=== PATIENT | female | born 1960 | race Caucasian/White ===

== ENCOUNTER → 2016-08-07 | Outpatient (CLI) | payer BC | LOC: MOB LAB 12:19 | PROVIDERS: ATTEND Physician Assistant | DX: T81.4XXA Infection following a procedure, initial encounter (principal); Z90.710 Acquired absence of both cervix and uterus; Z98.890 Other specified postprocedural states | CPT/HCPCS: 87070; 87077; 87186; 87205 ==

== ENCOUNTER 2016-09-11 08:25 | Day surgery (SDC) | payer BC ==
[~2016-09-11 08:25] MED LIST: LIDOCAINE W/ SODIUM BICARB 0.5 ML SYR ONE; Lactated Ringers 1,000 ML PRIMARY IV ONE; ceFAZolin Inj 2gm (Premix) 50 ML IV ONE
[2016-09-11] MEDS ORDERED: SODIUM BICARBONATE 8.4% - 50 ML VIAL ONE (09:40)
[2016-09-11] MEDS ORDERED: LIDOCAINE HCL 1%/EPI 1:100,000 - 20 ML VIAL ONE (09:40)
[2016-09-11] MEDS ORDERED: HEPARIN 500 UNIT/5 ML SYRINGE FOR CENTRAL LINE IVP ONE ×2 (09:41)
[2016-09-11] MEDS ORDERED: fentaNYL Inj 100 MCG/2 ML VIAL ONE (09:44)
[2016-09-11] MEDS ORDERED: MIDAZOLAM 5 MG/1 ML ONE (09:44)
[2016-09-11] MEDS ORDERED: Sodium Chloride 0.9% 100 ML IV ONE (09:54)
--- NOTE | 2016-09-11 10:57 | DI ---
C-ARM FLUOROSCOPY OF THE CHEST, 09/11/2016 9:30 AM : Clinical History: Endometrial cancer. Verification of placement of a Mediport catheter. Previous Exam: None at this facility. 2 AP spot films are submitted. Both show the catheter tip to be in the distal superior vena cava. The approach is from the left subclavian route. There is no evidence of a pneumothorax. Reading: Status post Mediport catheter placement.
--- NOTE | 2016-09-11 11:04 | GEN.OPNOTE ---
Operative Note Surgery Date: 09/11/16 Preoperative Diagnosis: Endometrial cancer. Need for long-term venous access. Postoperative Diagnosis: Endometrial cancer. Need for long-term venous access. Procedure: Left subclavian PowerPort placement. Surgeon: Oziel Marie MD Anesthesia Provider: Yong Arguello CRNA Anesthesia Type: Local (1% Xylocaine with epinephrine and sodium bicarbonate per Oziel Marie M.D.), MAC Estimated Blood Loss (mL): 5 Fluids: 700 mL of crystalloid. 2 g of IV Ancef at the start of the procedure. Pathology: No specimens. Indications: See preoperative diagnosis. Findings: Smooth course of the catheter in the subclavian vein into the superior vena cava. No evidence of pneumothorax fluoroscopically. Complications: None. Operative Summary: The patient was taken to the operating suite and placed on the operating table in the supine position. A surgical timeout was done. Following the induction of adequate IV sedation the operative site was chosen and infiltrated with 1% Xylocaine with epinephrine and bicarbonate. The patient is right-handed so I chose a left subclavian approach. A Cook needle was used to tunnel from the port site up to the subclavian vein. The needle was inserted into the subclavian vein on the first pass. A guidewire was passed through the vein into the superior vena cava. Its position was confirmed with fluoroscopy. An incision was made on the chest wall. A subcutaneous pocket was developed. A power port was chosen. The catheter was cut to 20 cm. The device was put together in the normal fashion and flushed with heparinized saline. A peel- away sheath and dilator were passed over the guidewire. The guidewire and dilator were removed. The catheter was passed through the peel-away sheath into the superior vena cava. The peel-away sheath was removed. The port was placed into the chest wall pocket. Fluoroscopy confirmed a smooth course of the catheter throughout. The tip was in the superior vena cava. There was no evidence of a pneumothorax. The device was flushed initially with 10 units of heparin per cc flush. Final flush was with 7 mL of 100 units of heparin per cc flush. The deep dermis was closed with inverted interrupted 3-0 Vicryls. The skin was closed with running subcuticular 4-0 Monocryl. This was followed by Mastisol, Steri-Strips, and an OpSite dressing. A sandbag was placed on the operative site. The patient tolerated the procedure well without complication. She was taken to outpatient surgery in stable condition. All counts were correct. Final chest x-ray shows the catheter tip in the superior vena cava. There is no evidence of a pneumothorax. The catheter may be used for its intended purpose.
[2016-09-11] MEDS ORDERED: HYDROcodone-APAP 5 MG -325 MG TABLET PO PRN (11:11)
--- NOTE | 2016-09-11 12:00 | DI ---
AP CHEST X-RAY, 09/11/2016 10:45 AM : Clinical History: Endometrial cancer. Verification of Mediport catheter position. Previous Exam: None at this facility. There is no acute soft tissue or bony abnormality. Heart size is normal. There is no pneumothorax. Me diastinal structures are normal. There are no pulmonary nodules. The Mediport has been inserted from the left subclavian route and the catheter tip is in the distal superior vena cava. Readin. Normal chest x-ray. 2. The catheter tip is in the distal superior vena cava.
[2016-09-11 12:07] VITALS: TEMP 97
[2016-09-11 12:10] VITALS: RESP 17
== END 2016-09-11 11:55 | disposition home or self-care (01) ==
LOC: SDSC 08:25
PROVIDERS: ATTEND Surgery
DX: C54.1 Malignant neoplasm of endometrium (principal)
CPT/HCPCS: 36561; 71010; 76000; J0690; J2704; J3010; J2250; J7050; J7120

== ENCOUNTER 2016-11-09 19:27 | Inpatient (IN) | payer BC ==
[2016-11-09] MEDS ORDERED: ACETAMINOPHEN 325 MG TABLET PO ONE (19:51)
[2016-11-09] MEDS ORDERED: NORMAL SALINE 10 ML SYRINGE FLUSH IVP PRN ×2 (19:51→22:34)
[2016-11-09 19:59] LABS: BILIRUBIN,URINE NEGATIVE (NEG); CLARITY,URINE CLEAR (CLEAR); COLOR,URINE YELLOW; GLUCOSE, URINE (UA) 100 mg/dL (NEG); NITRATE,URINE NEGATIVE (NEG); OCCULT BLOOD,URINE NEGATIVE (NEG); PROTEIN,URINE 30 mg/dl (NEG)
[2016-11-09 20:00] LABS: BACTERIA,URINE RARE; RBC,URINE 0-1 /hpf; SQUAMOUS EPITHELIAL CELL,UR MODERATE; URINE SAMPLE TYPE CLEAN CATCH URINE; WBC,URINE 0-1
[2016-11-09 20:32] LABS: BASOPHILS # (AUTO) 0.04 10*3/UL; BASOPHILS % (AUTO) 2.2 % (0-1); EOSINOPHILS # (AUTO) 0.05 10*3/UL; EOSINOPHILS % (AUTO) 2.8 % (0-8); HEMATOCRIT 27.4 % (37.0-47.0); HEMOGLOBIN 9.2 g/dL (12.0-16.0); LYMPHOCYTES # (AUTO) 0.98 10*3/uL; MEAN CORPUSCULAR HEMOGLOBIN 26.4 PG (27-31); MEAN CORPUSCULAR HGB CONC 33.6 g/dL (33-37); MEAN CORPUSCULAR VOLUME 78.7 FL (81-99); MONOCYTES # (AUTO) 0.71 10*3/UL (0.3-0.8); MONOCYTES % (AUTO) 39.9 % (5-15); NEUTROPHILS # (AUTO) 0 10*3/UL; NEUTROPHILS % (AUTO) 0 % (50-80); RED BLOOD COUNT 3.48 10^6/uL (4.20-5.40)
[2016-11-09 20:41] LABS: BLOOD UREA NITROGEN 14 mg/dL (7-22); BUN/CREATININE RATIO 15.55 (6-20); CALCIUM 8.6 mg/dL (8.7-10.7); EST GLOMERULAR FILTRATION > 60 (>60 ml/min/1.73m(2)); SERUM ALBUMIN 3.8 g/dL (3.5-4.8)
[2016-11-09 20:47] LABS: PLATELET MORPHOLOGY COMMENT NORMAL MORPHOLOGY (NORM); RBC MORPHOLOGY COMMENT NORMAL MORPHOLOGY (NORM); WBC MORPHOLOGY COMMENT NORMAL MORPHOLOGY (NORM)
[2016-11-09] MEDS ORDERED: Ertapenem Inj 1 GM in Sodium Chloride 0.9% 100 ML IV ONE (21:05)
--- NOTE | 2016-11-09 21:53 | PDOC ---
General Adult HPI - General Chief Complaint: General Medical Stated Complaint: Fever Date Seen by Provider: 11/09/16 Time Seen by Provider: 19:35 Source: POSITIVE: Patient, Spouse Exam Limitations: POSITIVE: No limitations Nurse's Notes Reviewed & Considered: Yes - History of Present Illness Initial Comment: The patient is a 56-year-old female. She is brought to the emergency room by her . Patient has a history of endometrial carcinoma which has reportedly spread to her ovaries. Patient underwent a hysterectomy and bilateral salpingo-oophorectomy. She is presently undergoing chemotherapy with pactilaxal and carboplatin. She is receiving this therapy from an oncologist in [place]. Patient undergoes a course of chemotherapy every 21 days and has just completed her third round. She last received this medication 14 days ago. She states that since last night she has had fevers and chills. No cough. No dysuria. No vomiting or diarrhea. No rashes. She called her oncologist in [place], who advised the patient to come to the emergency room. Patient has had a LAP-BAND in the past. On one made her white blood cell count was 7000. Have you received a tetanus shot in the past 10 years?: Yes Body Location Affected: REPORTS: Other (Fevers and chills) Timing: REPORTS: Abrupt Duration: <24 hours (Onset last night) Severity: Moderate Quality: REPORTS: Other (Patient denies any pain) Context: REPORTS: None Modifying Factors: improves with: Nothing Similar Symptoms Previously: No Recent Care Received: REPORTS: Recently Seen, Treated by MD (As above) Any Prior Injuries Related to Current Complaint?: No - Patient Home Medications Home Medications: Home Medications Diltiazem HCl 30 mg PO BID tab 01/25/15 Acyclovir [Zovirax] 1 tab PO BID PRN tab 09/10/16 Echinacea 1 cap PO DAILY cap 09/10/16 Losartan/Hydrochlorothiazide [Hyzaar 50-12.5 Tablet] 1 tab PO DAILY tab Lysine 1 tab PO DAILY tab 09/10/16 Vitamin B Complex 1 cap PO DAILY cap 09/10/16 - Patient Allergies Allergies/Adverse Reactions: Allergies Allergy/AdvReac Type Severity Reaction Status Date / Time No Known Drug Allergies Allergy NOT Verified 11/09/16 19:36 APPLICABLE Past Medical History - heen HEENT History: Denies History Cardiovascular History: Hypertension Additional Cardiovasular History: MURMUR Respiratory History: Denies History Gastrointestinal History: Other (please comment) Additional Gastrointestinal History: HX OF LAP BAND Genitourinary History: Denies History Endocrine History: Denies History Musculoskeletal History: Denies History Prosthesis or Implant: No Neurological History: Motion Sickness Blood Disorders: Denies History Psychiatric History: Denies History History of Sexually Transmitted Diseases: No Female Reproductive History: Other (please comment) Additional Female Reproductive History: Endometrial cancer, radiacal hysterectomy with removal of bilateral ovaries. Pt currently on IV chemotherapy. Pt reports recently finished infusion of third treament. Obstetrical History: Denies History Cancer History: Other (please comment) Cancer Treatment / Date(s) of Treatment: EXTENSIVE SX. HYST, LYMPH NODE, CHEMO In Past Year Been Physically Harmed or Verbally Threatened: No History of MDRO: No Tobacco Use: Never Smoker Alcohol Use: Rarely Substance Use Type: None Previous Surgical History: Yes Type / Date of Surgery: RADICAL HYST/ BILAT OOPHORECTOMY/ LAP BAND/ D&C/ LYMPH NODE DISSECTION Anesthesia Reactions: No Malignant Hyperthermia: No Significant Family History: No pertinent family hx Past Medical History Reviewed: Reviewed - No Changes ROS - Limitations ROS Limitations: No Limitations Constitution: REPORTS: Chills, Fever Cardiovascular: REPORTS: Denies Cardiac Symptoms Respiratory: REPORTS: Denies Resp Symptoms Neurological: REPORTS: Denies Neuro Symptoms Gastrointestinal: REPORTS: Denies GI Symptoms Endocrine: REPORTS: Denies Symptoms Musculoskeletal: REPORTS: Denies MS Symptoms Genitourinary: REPORTS: Denies Symptoms Eyes: REPORTS: Denies Symptoms ENT: REPORTS: Denies Symptoms Skin: REPORTS: Denies Skin Symptoms Lympathic: REPORTS: Denies Lympathic Symptoms Immunologic: POSITIVE: Denies Symptoms Psychiatric: POSITIVE: Denies Psych Symptoms General Adult Exam - General Appearance General Appearance: POSITIVE: Alert, Cooperative, No Acute Distress, No Evidence of Trauma - HEENT HEENT: POSITIVE: Head Inspection Nml, Eyes Inspection Nml, Ears Inspection Nml, Nose Inspection Nml, Oral/Dental Inspect. Nml, Pharynx Inspect. Nml, PERRL, EOMI - Pupils Pupil Size: 3 mm: Bilateral (PERRLA) - Neck Neck: POSITIVE: Normal Inspection, Thyroid Normal - Respiratory Respiratory: POSITIVE: No Respiratory Distress, Breath Sounds Normal, Chest Non- Tender - Cardiovascular Cardiovascular: POSITIVE: Regular Rate & Rhythm, No Murmur, No Gallop, PMI Normal Peripheral Pulses: Radial (R): 2+, Radial (L): 2+ - Abdomen Abdomen: Soft: (All Quadrants), Normal Bowel Sounds: (All Quadrants), Denies Tenderness: (All Quadrants), No Splenomegaly: (All Quadrants), No Hepatomegaly: (All Quadrants), No Guarding: (All Quadrants), No Rebound: (All Quadrants), No Palpable Pulse: (All Quadrants), No Palpabale Mass: (All Quadrants), No Distention: (All Quadrants), No Rigidity: (All Quadrants) - Back Back: POSITIVE: Normal Inspection - Skin Skin: POSITIVE: Normal Color, Warm, Dry, No Rash - Extremities Extremity: Non-Tender: (All Extremities), Normal ROM: (All Extremities), Normal Inspection: (All Extremities) - Neurological / Psychological Neurological: POSITIVE: Affect Apporpriate, Oriented X3, front office agent Normal As Tested, Motor Normal, Sensation Normal, Other (No meningeal signs) General Adult Progress - Results Reviewed by me Xrays/CTs/US Reviewed by me: Yes Discussed with Radiologist: No Radiology Findings: Port on the left. No infiltrates. Lab Results Reviewed: Yes (White blood cell count 1780; 0 neutrophils) Lab Results:: Laboratory Results 11/09/16 11/09/16 Range/Units 19:59 20:17 WBC 1.78 L (4.8-10.8) 10^3/uL RBC 3.48 L (4.20-5.40) 10^6/uL Hgb 9.2 L (12.0-16.0) g/dL Hct 27.4 L (37.0-47.0) % MCV 78.7 L (81-99) FL MCH 26.4 L (27-31) PG MCHC 33.6 (33-37) g/dL RDW Std Deviation 51.0 H (39-50) fL RDW Coeff of Liz 18.7 H (11.5-14.5) % Plt Count 258 (140-350) 10*3/uL MPV 9.0 (7.4-12.2) FL Immature Gran % (Auto) 0 (0-5) % Neut % (Auto) 0 L (50-80) % Lymph % (Auto) 55.1 H (10-50) % [place] % (Auto) 39.9 H (5-15) % Eos % (Auto) 2.8 (0-8) % Baso % (Auto) 2.2 H (0-1) % Immature Gran # (Auto) 0 10*3/UL Neut # (Auto) 0 10*3/UL Lymph # (Auto) 0.98 10*3/uL [place] # (Auto) 0.71 (0.3-0.8) 10*3/UL Eos # (Auto) 0.05 10*3/UL Baso # (Auto) 0.04 10*3/UL WBC Morphology Comment Normal morphology (NORM) Plt Morphology Comment Normal morphology (NORM) RBC Morph Comment Normal morphology (NORM) Sodium 138 (135-145) meq/L Potassium 3.1 L (3.8-5.2) meq/L Chloride 99 (98-112) meq/L Carbon Dioxide 25 (23-33) meq/L Anion Gap 14 (5-20) BUN 14 (7-22) mg/dL Creatinine 0.9 (0.50-1.20) mg/dL Estimated GFR > 60 (>60 ml/min/1.73m(2)) BUN/Creatinine Ratio 15.55 (6-20) Glucose 142 H (78-110) mg/dL Calculated Osmolality 288.0 (267-292) mOsm/kg Lactic Acid 1.2 (0.70-2.10) MMOL/L Calcium 8.6 L (8.7-10.7) mg/dL Total Bilirubin 0.6 (0.3-1.2) mg/dL AST 25 (8-39) IU/L ALT 39 (9-52) IU/L Alkaline Phosphatase 65 (38-126) IU/L Total Protein 6.7 (6.1-8.0) g/dL Albumin 3.8 (3.5-4.8) g/dL Globulin 2.9 (2.50-4.10) g/dL Albumin/Globulin Ratio 1.30 (1.3-2.0) mg/g Ur Collection Type Clean catch urine Urine Color Yellow Urine Clarity Clear (CLEAR) Urine pH 7.0 (5.0-8.5) Ur Specific [place] 1.015 (1.005-1.030) Urine Protein 30 (NEG) mg/dl Urine Glucose (UA) 100 (NEG) mg/dL Urine Ketones Negative (NEG) Urine Occult Blood Negative (NEG) Urine Nitrate Negative (NEG) Urine Bilirubin Negative (NEG) Urine Urobilinogen 1.0 (0.2) EU/dL Ur Leukocyte Esterase Negative (NEG) Urine RBC 0-1 (NONE) /hpf Urine WBC 0-1 (NONE) Ur Squamous Epith Cells Moderate (NONE) Ur Renal Epithelial Cell None (NONE) Urine Crystals None Urine Bacteria Rare (NONE) Urine Casts None (NONE) Urine Mucus None (NONE) Urine Trichomonas None (NONE) Urine Yeast None (NONE) Ur Culture Indicated? Culture not set - Patient's Progress Pain Medication Addressed: POSITIVE: Not Applicable School/Work Release Addressed: POSITIVE: Not Applicable Re-Examine Time: 21:10 Re-Examine Comment: Patient given Tylenol for her fever. Temperatures 100.7 on discharge. Invanz 1 g started after blood cultures were taken. Attempts to contact patient's oncologist in [place] were unsuccessful. Case discussed with Dr. Victor, hospitalist, who has admitted the patient for further evaluation and treatment. Status: POSITIVE: Unchanged, Re-Examined Antibiotics Given: Yes (Invanz, 1 g IV) - Consult Consult (If Yes, Name of Consulting MD & Time Called): Yes (Dr. Victor, hospitalist [id number],) Consulting MD will see pt:: POSITIVE: [facility] [place]mit Counseled: POSITIVE: Patient, Family, RE: Lab Results, RE: Radiology Results, RE : DX, RE: Need for F/U Patient Care Time - Estimated PCT Patient Care Time (In Minutes): 55 Vital Signs - Recent Vital Signs Vital Signs: Vital Signs (Last 8 hours) Temp Pulse Resp BP Pulse Ox 11/09/16 21:08 100.7 F H 11/09/16 20:02 102.4 F H 11/09/16 19:30 102.4 F H 108 H 20 140/86 93 - VS Reviewed Vital Signs Reviewed: Yes Discharge Clinical Impression: Fever, Leucopenia, Uterine cancer, Chemotherapy adverse reaction Discharge Disposition: Admit to Inpatient Condition: Good Date Decision to Admit to Inpatient: 11/09/16 Time Decision to Admit to Inpatient: 21:00
[2016-11-09] MEDS ORDERED: Filgrastim Inj 480 MCG/0.8 ML SYRINGE IVP ONE (22:34)
[2016-11-09] MEDS ORDERED: ONDANSETRON 4 MG/2 ML VIAL IVP PRN (22:34)
[2016-11-09] MEDS ORDERED: Vancomycin-PHA to Dose IV PRN (22:34)
[2016-11-09] MEDS ORDERED: ACYCLOVIR 400 MG TABLET PO PRN (22:34)
[2016-11-09] MEDS ORDERED: LIDOCAINE W/ SODIUM BICARB 0.5 ML SYR SUBD PRN (22:34)
[2016-11-09] MEDS ORDERED: ACETAMINOPHEN 325 MG TABLET PO PRN (22:34)
[2016-11-09] MEDS ORDERED: DILTIAZEM 30 MG TABLET PO SCH (22:40)
[2016-11-09] MEDS: Sodium Chloride 0.9% 1,000 ML PRIMARY IV SCH (23:22)
[2016-11-09] MEDS: Cefepime Inj 2 GM in Sodium Chloride 0.9% 100 ML IV SCH (23:23)
[2016-11-09] MEDS ORDERED: D5W 0 ML IV ONE (23:44)
--- NOTE | 2016-11-09 23:45 | PDOC ---
History and Physical - History of Present Illness Date and Time of Service: 11/09/2016, 7554 Chief Complaint: Fever and chills History of Present Illness: This very pleasant 56-year-old female with stage NICOLAS endometrial cancer status post radical hysterectomy and on her third cycle of 6 for chemotherapy. She is actually due for repeat dose of chemotherapy next week. She's been treated by Dr. Rivera in [place] at [facility]. She came in because she developed a fever and chills. She developed chills yesterday but her states she's actually been quite cold and has been using the blanket frequently at home. Chills and fever developed yesterday and according to that she she was supposed to seek evaluation. They called the resident dynamics ax consultant who recommended that she present to the emergency room for evaluation. Here she was found to have an absolute neutrophil count of 0. She's never had this happen before. She denies any symptoms of cough, nausea or vomiting, diarrhea, or shortness of breath. She denies any urinary complaints. She was admitted and I gave her a dose of cefepime and vancomycin. Blood cultures were drawn and are pending. I also ordered a dose of Neupogen. Patient denied any rashes and she denies any joint pain. She states that she does feel a little constipated and has some myalgias postchemotherapy for about 3-4 days but they tend to resolve. Past Medical History Medical History: 1. Stage NICOLAS endometrial cancer status post radical hysterectomy and on chemotherapy currently. 2. Hypertension Surgical History: 1. Radical hysterectomy. 2. Status post lap banding Pertinent Family History: States that her mother has COPD. Her father had skin cancers, but not melanoma. Past Social History: Does not smoke or drink. 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 She is for over 38 years and has 3 healthy children. Tobacco Use: Never Smoker Substance Use Type: None Alcohol Use: None Medication / Allergies Home Medications: Home Medications Medication Instructions Recorded Confirmed Type Diltiazem HCl 30 mg PO BID tab 01/25/15 11/09/16 History Acyclovir [Zovirax] 1 tab PO BID PRN tab 09/10/16 11/09/16 History Echinacea 1 cap PO DAILY cap 09/10/16 11/09/16 History Losartan/Hydrochlorothiazide 1 tab PO DAILY tab 09/10/16 11/09/16 History [Hyzaar 50-12.5 Tablet] Lysine 1 tab PO DAILY tab 09/10/16 11/09/16 History Vitamin B Complex 1 cap PO DAILY cap 09/10/16 11/09/16 History Allergies/Adverse Reactions: Allergies Allergy/AdvReac Type Severity Reaction Status Date / Time No Known Drug Allergies Allergy NOT Verified 11/09/16 19:36 APPLICABLE Review of Systems - Review of Systems All Systems: Reviewed & No Additional Complaints Except as Stated (I did a 12 point review systems and it was negative except as per history of present illness and that noted below.) - Constitutional Constitutional: REPORTS: Weight Gain, Fever/Chills - Integumentary Integumentary: REPORTS: Negative System Review - Ear/Nose Exam Ear/Nose Exam: REPORTS: Negative System Review - Mouth/Throat Mouth/Throat Exam: REPORTS: Negative System Review - Respiratory Respiratory: REPORTS: Negative System Review - Cardiovascular Cardiovascular: REPORTS: Negative System Review - Gastrointestinal Gastrointestinal / Abdominal: REPORTS: Constipation (For about 3-4 days following chemotherapy.) - Genitourinary Genitourinary: REPORTS: Negative System Review - Gynecological Gynecological: REPORTS: See HPI - Musculoskeletal Musculoskeletal: REPORTS: Other (Generalized joint pains 3-4 days following chemotherapy.) - Hematlogic / Lymphatic Hematologic / Lymphatic: REPORTS: Other (Has never had any problems with neutropenia thus far.) - Neurological Neurologic: REPORTS: Negative System Review - Psychiatric Psychiatric: DENIES: Anhedonia, Anxiety, Depressed, Hopelessness, Hospitalization, Negative System Review, Other, Panic, Sadness, See HPI, Suicidality, Tearfullness Exam - Vitals Vital Signs: Vital Signs Height 5 ft 4 in Weight 204 lb 6.4 oz Vital Signs - Last Taken Temperature 100.7 F H 11/09/16 21:08 Pulse Rate 108 H 11/09/16 19:30 Respiratory Rate 20 11/09/16 19:30 Blood Pressure 140/86 11/09/16 19:30 Pulse Ox 93 11/09/16 19:30 Currently on room air. - General General Appearance: POSITIVE: No Acute Distress, Cooperative, Obese - Head Head Exam: POSITIVE: Normal Inspection, Normocephalic, Atraumatic - Eye Eye Exam: POSITIVE: EOMI, No Scleral Icterus - ENT ENT Exam: POSITIVE: Mucous Membranes Moist - Neck Neck Exam: POSITIVE: Normal Inspection, No Tenderness, No Thyromegaly - Respiratory Respiratory Exam: POSITIVE: Clear to Auscultation - Bilaterally, Breathing Non Labored, Normal to Percussion and Palpation - Cardiovascular Cardiovascular Exam: POSITIVE: RRR, No Murmur, No Clicks, No Gallops, No Rubs, No JVD - GI/Abdominal GI/Abdominal Exam: POSITIVE: Normal Bowel Sounds, Non Tender, Non Distended, Soft - Rectal Rectal Exam: POSITIVE: Deferred - External Exam: POSITIVE: Deferred Exam: POSITIVE: Deferred - Extremities Extremities Exam: POSITIVE: No Clubbing Present, No Edema Present, No Cyanosis Present - Back Back Exam: POSITIVE: Normal Inspection, No CVA Tenderness - Neurological Neurological Exam: POSITIVE: Alert, Oriented x 3, No Facial Droop, Speech Intact / Clear, Moves All Extremities Equally - Psychiatric Psychiatric Exam: POSITIVE: Normal Affect, Normal Mood - Integumentary Integumentary Exam: POSITIVE: Normal Color, Warm, Dry - Central Line Examination Central Line Present on Admission: Yes Central Line Type: Med-Port Central Line Location: Subclavian (L) Central Line Site Observations: POSITIVE: Asymptomatic, Intact, Patent Results - Labs CBC and BMP: 11/09/16 20:17 11/09/16 20:17 Labs - Last 24 Hours: Laboratory Results 11/09/16 11/09/16 Range/Units 19:59 20:17 WBC 1.78 L (4.8-10.8) 10^3/uL RBC 3.48 L (4.20-5.40) 10^6/uL Hgb 9.2 L (12.0-16.0) g/dL Hct 27.4 L (37.0-47.0) % MCV 78.7 L (81-99) FL MCH 26.4 L (27-31) PG MCHC 33.6 (33-37) g/dL RDW Std Deviation 51.0 H (39-50) fL RDW Coeff of Liz 18.7 H (11.5-14.5) % Plt Count 258 (140-350) 10*3/uL MPV 9.0 (7.4-12.2) FL Immature Gran % (Auto) 0 (0-5) % Neut % (Auto) 0 L (50-80) % Lymph % (Auto) 55.1 H (10-50) % [place] % (Auto) 39.9 H (5-15) % Eos % (Auto) 2.8 (0-8) % Baso % (Auto) 2.2 H (0-1) % Immature Gran # (Auto) 0 10*3/UL Neut # (Auto) 0 10*3/UL Lymph # (Auto) 0.98 10*3/uL [place] # (Auto) 0.71 (0.3-0.8) 10*3/UL Eos # (Auto) 0.05 10*3/UL Baso # (Auto) 0.04 10*3/UL WBC Morphology Comment Normal morphology (NORM) Plt Morphology Comment Normal morphology (NORM) RBC Morph Comment Normal morphology (NORM) Sodium 138 (135-145) meq/L Potassium 3.1 L (3.8-5.2) meq/L Chloride 99 (98-112) meq/L Carbon Dioxide 25 (23-33) meq/L Anion Gap 14 (5-20) BUN 14 (7-22) mg/dL Creatinine 0.9 (0.50-1.20) mg/dL Estimated GFR > 60 (>60 ml/min/1.73m(2)) BUN/Creatinine Ratio 15.55 (6-20) Glucose 142 H (78-110) mg/dL Calculated Osmolality 288.0 (267-292) mOsm/kg Lactic Acid 1.2 (0.70-2.10) MMOL/L Calcium 8.6 L (8.7-10.7) mg/dL Total Bilirubin 0.6 (0.3-1.2) mg/dL AST 25 (8-39) IU/L ALT 39 (9-52) IU/L Alkaline Phosphatase 65 (38-126) IU/L Total Protein 6.7 (6.1-8.0) g/dL Albumin 3.8 (3.5-4.8) g/dL Globulin 2.9 (2.50-4.10) g/dL Albumin/Globulin Ratio 1.30 (1.3-2.0) mg/g Ur Collection Type Clean catch urine Urine Color Yellow Urine Clarity Clear (CLEAR) Urine pH 7.0 (5.0-8.5) Ur Specific [place] 1.015 (1.005-1.030) Urine Protein 30 (NEG) mg/dl Urine Glucose (UA) 100 (NEG) mg/dL Urine Ketones Negative (NEG) Urine Occult Blood Negative (NEG) Urine Nitrate Negative (NEG) Urine Bilirubin Negative (NEG) Urine Urobilinogen 1.0 (0.2) EU/dL Ur Leukocyte Esterase Negative (NEG) Urine RBC 0-1 (NONE) /hpf Urine WBC 0-1 (NONE) Ur Squamous Epith Cells Moderate (NONE) Ur Renal Epithelial Cell None (NONE) Urine Crystals None Urine Bacteria Rare (NONE) Urine Casts None (NONE) Urine Mucus None (NONE) Urine Trichomonas None (NONE) Urine Yeast None (NONE) Ur Culture Indicated? Culture not set - Imaging Status: Image Reviewed by Me (Chest x-ray is negative for pneumonia on my view. The port looks to be in proper location.) Assessment and Plan - Patient Problems (1) Neutropenic fever Current Visit: Yes Status: Acute (2) Endometrial cancer, FIGO stage NICOLAS Current Visit: Yes Status: Acute (3) Hypertension Current Visit: Yes Status: Acute Qualifiers: Hypertension type: essential hypertension Qualified Description: Essential hypertension Qualifier Code(s): (I10) Essential (primary) hypertension - Assessment / Plan Additional Assessment/Plan Details: The patient on her MASCC risk index is a score of 26, which probably puts her at low risk, but I'm very concerned that her absolute neutrophil count is 0. This may place her in a higher risk category. I think she needs monitoring in the hospital stay. History of physical examination does not indicate any infection at this time, patient is alert and oriented, has no evidence of DIESEL ENGINE PIPE FITTER infection, has no evidence of port infection, no evidence of pneumonia, no evidence of urinary tract infection, and no indication that she could have endocarditis. Blood cultures have been drawn and are pending. Broad-spectrum antibiotics including cefepime, and given that she has had treatments for chemotherapy and hospitalizations and at a university setting, I think vancomycin may be worthwhile here for at least the next 48 hours until we see blood culture results. Give Neupogen. On Friday, when there is more data and information from blood cultures, I think it may be worthwhile to call down to the clinic and find out whether they would like us to do anything different. If blood cultures are negative at 48 hours, could consider discharge home on empiric regimen to cover 7-10 days. IV fluids will be administered. I will keep the patient on telemetry monitoring for heart rate monitoring in particular. No evidence of sepsis at this time, but monitor closely. Patient is hypokalemic, replace potassium. For the constipation, add MiraLAX to her regimen. Neutropenic precautions And I have asked for no visitation from grandchildren until her ANC is above 500 at a minimum. I discussed the above plan with the patient and her and they agreed. She is full code. Photo / Body Diagrams - Uploaded Photos Uploaded Photos:
[2016-11-09] MEDS ORDERED: POTASSIUM CHLORIDE 20 MEQ TAB PO ONE (23:56)
[2016-11-09] MEDS ORDERED: Potassium Chloride 20 mEq 20 MEQ in Premix 1 BAG IV ONE (23:57)
[2016-11-10] MEDS: DILTIAZEM 30 MG TABLET PO SCH ×2 (00:24→09:14)
[2016-11-10] MEDS ORDERED: HEPARIN 500 UNIT/5 ML SYRINGE FOR CENTRAL LINE IVP ONE (01:09)
[2016-11-10 05:45] LABS: HEMOGLOBIN 8.2 g/dL (12.0-16.0); LYMPHOCYTES # (AUTO) 0.65 10*3/uL
[2016-11-10 05:52] LABS: BLOOD UREA NITROGEN 9 mg/dL (7-22); CALCIUM 8.4 mg/dL (8.7-10.7); EST GLOMERULAR FILTRATION > 60 (>60 ml/min/1.73m(2)); MAGNESIUM 1.6 mg/dL (1.6-2.4)
[2016-11-10 05:54] LABS: BASOPHILS # (AUTO) 0.02 10*3/UL; BASOPHILS % (AUTO) 1.3 % (0-1); EOSINOPHILS # (AUTO) 0.04 10*3/UL; EOSINOPHILS % (AUTO) 2.6 % (0-8); HEMATOCRIT 25.1 % (37.0-47.0); MEAN CORPUSCULAR HEMOGLOBIN 25.9 PG (27-31); MEAN CORPUSCULAR HGB CONC 32.7 g/dL (33-37); MEAN CORPUSCULAR VOLUME 79.4 FL (81-99); MEAN PLATELET VOLUME 9.4 FL (7.4-12.2); MONOCYTES % (AUTO) 44.9 % (5-15); NEUTROPHILS # (AUTO) 0.15 10*3/UL; NEUTROPHILS % (AUTO) 9.5 % (50-80); RED BLOOD COUNT 3.16 10^6/uL (4.20-5.40)
[2016-11-10 06:24] LABS: PLATELET MORPHOLOGY COMMENT NORMAL MORPHOLOGY (NORM); RBC MORPHOLOGY COMMENT SEE COMMENTS (NORM); WBC MORPHOLOGY COMMENT SEE COMMENTS (NORM)
[2016-11-10] MEDS: Cefepime Inj 2 GM in Sodium Chloride 0.9% 100 ML IV SCH ×3 (08:04→23:05)
[2016-11-10] MEDS: Sodium Chloride 0.9% 1,000 ML PRIMARY IV SCH ×3 (08:05→20:49)
[2016-11-10] MEDS ORDERED: DILTIAZEM 30 MG TABLET PO SCH (09:00)
[2016-11-10] MEDS: LOSARTAN/HYDROCHLOROTHIAZIDE 50 MG/12.5 MG TABLET PO SCH (09:12)
[2016-11-10] MEDS ORDERED: DILTIAZEM 60 MG TABLET PO ONE ×2 (09:12→20:39)
[2016-11-10] MEDS: ACYCLOVIR 400 MG TABLET PO SCH ×2 (09:13→20:49)
[2016-11-10] MEDS: ECHINACEA PO SCH (09:15)
[2016-11-10] MEDS: ENOXAPARIN SODIUM 40 MG/0.4 ML SYRINGE SUBCUT SCH (09:15)
[2016-11-10] MEDS: LYSINE PO SCH (09:16)
[2016-11-10] MEDS: VITAMIN B COMPLEX PO SCH (09:16)
[2016-11-10] MEDS ORDERED: Filgrastim Inj 480 MCG/0.8 ML SYRINGE IVP ONE (09:42)
[2016-11-10] MEDS ORDERED: POTASSIUM CHLORIDE 20 MEQ TAB PO ONE (09:43)
[2016-11-10] MEDS: ACETAMINOPHEN 325 MG TABLET PO PRN ×2 (12:40→23:12)
[2016-11-10] MEDS ORDERED: POLYETHYLENE GLYCOL 3350 17 GM POWDER PO ONE (13:07)
--- NOTE | 2016-11-10 14:35 | PDOC(PROG) ---
Date and Time of Service: 11/10/2016, 1435 Interval History: No complaints of chest pain, shortness breath, nausea or vomiting, diarrhea, cough, or other symptoms. No dysuria. Objective : Data - Labs CBC and BMP: 11/10/16 05:09 11/10/16 05:09 Labs - Last 24 Hours: Laboratory Results 11/10/16 Range/Units 05:09 WBC 1.56 L (4.8-10.8) 10^3/uL RBC 3.16 L (4.20-5.40) 10^6/uL Hgb 8.2 L (12.0-16.0) g/dL Hct 25.1 L (37.0-47.0) % MCV 79.4 L (81-99) FL MCH 25.9 L (27-31) PG MCHC 32.7 L (33-37) g/dL RDW Std Deviation 51.5 H (39-50) fL RDW Coeff of Liz 18.8 H (11.5-14.5) % Plt Count 248 (140-350) 10*3/uL MPV 9.4 (7.4-12.2) FL Immature Gran % (Auto) 0 (0-5) % Neut % (Auto) 9.5 L (50-80) % Lymph % (Auto) 41.7 (10-50) % [place] % (Auto) 44.9 H (5-15) % Eos % (Auto) 2.6 (0-8) % Baso % (Auto) 1.3 H (0-1) % Immature Gran # (Auto) 0 10*3/UL Neut # (Auto) 0.15 10*3/UL Lymph # (Auto) 0.65 10*3/uL [place] # (Auto) 0.70 (0.3-0.8) 10*3/UL Eos # (Auto) 0.04 10*3/UL Baso # (Auto) 0.02 10*3/UL WBC Morphology Comment See comments (NORM) Plt Morphology Comment Normal morphology (NORM) RBC Morph Comment See comments (NORM) Sodium 140 (135-145) meq/L Potassium 3.6 L (3.8-5.2) meq/L Chloride 103 (98-112) meq/L Carbon Dioxide 27 (23-33) meq/L Anion Gap 10 (5-20) BUN 9 (7-22) mg/dL Creatinine 0.6 (0.50-1.20) mg/dL Estimated GFR > 60 (>60 ml/min/1.73m(2)) BUN/Creatinine Ratio 15.00 (6-20) Glucose 145 H (78-110) mg/dL Calculated Osmolality 291.0 (267-292) mOsm/kg Lactic Acid 1.6 (0.70-2.10) MMOL/L Calcium 8.4 L (8.7-10.7) mg/dL Magnesium 1.6 (1.6-2.4) mg/dL Assessment and Plan - Patient Problems (1) Neutropenic fever Current Visit: Yes Status: Acute (2) Endometrial cancer, FIGO stage NICOLAS Current Visit: Yes Status: Acute (3) Hypertension Current Visit: Yes Status: Acute Qualifiers: Hypertension type: essential hypertension Qualified Description: Essential hypertension Qualifier Code(s): (I10) Essential (primary) hypertension - Assessment / Plan Additional Assessment/Plan Details: Continue cefepime and vancomycin, awaiting blood cultures which are not back at this point. I spoke to oncology at the [facility], I did hear a murmur on today's heart exam and ran it by them. The patient had a documented history of a murmur and given that it was in the setting of anemia and fever, they think the only indication for a ARON at this point would be if the patient has positive blood cultures. Those are pending at this time. Continue antibiotics prophylactically until fevers erika. Patient's absolute neutrophil count is about 16, still less than 500, and we will give another dose of Neupogen today. Check CBC with differential and basic metabolic panel tomorrow. If the patient at any time becomes septic or ill, were somewhat her appearance is now, we would consider transfer to [facility]. Plan above discussed with patient and her and they agree. Photo / Body Diagrams - Uploaded Photos Uploaded Photos:
[2016-11-10] MEDS ORDERED: ENOXAPARIN SODIUM 40 MG/0.4 ML SYRINGE SUBCUT ONE (20:02)
[2016-11-10] MEDS: DILTIAZEM 60 MG TABLET PO SCH (20:48)
[2016-11-10] MEDS ORDERED: ACETAMINOPHEN 325 MG TABLET PO ONE (23:11)
[2016-11-11 01:41] LABS: VITAMIN D 25-HYDROXY 26.8 NG/ML (30-100)
[2016-11-11] MEDS: Sodium Chloride 0.9% 1,000 ML PRIMARY IV SCH ×2 (03:19→07:04)
[2016-11-11 04:24] LABS: MEAN PLATELET VOLUME 8.9 FL (7.4-12.2)
[2016-11-11 04:28] LABS: HEMATOCRIT 24.4 % (37.0-47.0); HEMOGLOBIN 7.9 g/dL (12.0-16.0); MEAN CORPUSCULAR HEMOGLOBIN 25.7 PG (27-31); MEAN CORPUSCULAR HGB CONC 32.4 g/dL (33-37); MEAN CORPUSCULAR VOLUME 79.5 FL (81-99); RED BLOOD COUNT 3.07 10^6/uL (4.20-5.40)
[2016-11-11 04:34] LABS: BLOOD UREA NITROGEN 6 mg/dL (7-22); CALCIUM 7.9 mg/dL (8.7-10.7); EST GLOMERULAR FILTRATION > 60 (>60 ml/min/1.73m(2))
[2016-11-11 05:00] LABS: PLATELET MORPHOLOGY COMMENT NORMAL MORPHOLOGY (NORM); RBC MORPHOLOGY COMMENT SEE COMMENTS (NORM); WBC MORPHOLOGY COMMENT SEE COMMENTS (NORM)
[2016-11-11 05:01] LABS: BAND NEUTROPHILS % 46 % (0-10); BASOPHILS % (MANUAL) 0 % (0-1); EOSINOPHILS % (MANUAL) 0 % (0-8); LYMPHOCYTES % (MANUAL) 17 % (10-50); METAMYELOCYTES % 11 %; MONOCYTES % (MANUAL) 9 % (0-12); MYELOCYTES % 1 %; NEUTROPHILS % (MANUAL) 16 % (50-80)
[2016-11-11] MEDS: Cefepime Inj 2 GM in Sodium Chloride 0.9% 100 ML IV SCH ×3 (07:04→23:15)
[2016-11-11] MEDS ORDERED: POLYETHYLENE GLYCOL 3350 17 GM POWDER PO SCH (09:00)
[2016-11-11] MEDS ORDERED: POTASSIUM CHLORIDE 20 MEQ TAB PO SCH (09:00)
[2016-11-11] MEDS: LOSARTAN/HYDROCHLOROTHIAZIDE 50 MG/12.5 MG TABLET PO SCH (09:01)
[2016-11-11] MEDS: DILTIAZEM 60 MG TABLET PO SCH ×2 (09:01→20:56)
[2016-11-11] MEDS: ACYCLOVIR 400 MG TABLET PO SCH ×2 (09:01→20:56)
[2016-11-11] MEDS: ENOXAPARIN SODIUM 40 MG/0.4 ML SYRINGE SUBCUT SCH (09:02)
[2016-11-11] MEDS: ECHINACEA PO SCH (09:11)
[2016-11-11] MEDS: LYSINE PO SCH (09:12)
[2016-11-11] MEDS: VITAMIN B COMPLEX PO SCH (09:12)
--- NOTE | 2016-11-11 09:38 | PDOC(PROG) ---
Date and Time of Service: 11/11/2016 9:35 AM Interval History: Subjective Patient feels much better she said compared to when she came in. She came into the hospital because of history of fever and chills, she denied other symptoms. Her white count was low she was started on IV antibiotics and she was given Neupogen. Today she feels better. She said she started to have diarrhea yesterday. Went multiple times with small amounts. No abdominal pain. She has a history of endometrial cancer she had hysterectomy and she's getting chemotherapy now. She is getting it every 3 weeks the last time she got it was 2 weeks ago. Objective : Data - Labs CBC and BMP: 11/11/16 04:08 11/11/16 04:08 Labs - Last 24 Hours: Laboratory Results 11/10/16 11/11/16 Range/Units 05:09 04:08 WBC 6.64 (4.8-10.8) 10^3/uL RBC 3.07 L (4.20-5.40) 10^6/uL Hgb 7.9 L (12.0-16.0) g/dL Hct 24.4 L (37.0-47.0) % MCV 79.5 L (81-99) FL MCH 25.7 L (27-31) PG MCHC 32.4 L (33-37) g/dL RDW Std Deviation 52.6 H (39-50) fL RDW Coeff of Liz 18.9 H (11.5-14.5) % Plt Count 206 (140-350) 10*3/uL MPV 8.9 (7.4-12.2) FL Neutrophils % (Manual) 16 L (50-80) % Band Neutrophils % 46 H (0-10) % Lymphocytes % (Manual) 17 (10-50) % Monocytes % (Manual) 9 (0-12) % Eosinophils % (Manual) 0 (0-8) % Basophils % (Manual) 0 (0-1) % Metamyelocytes % 11 % Myelocytes % 1 % Promyelocytes % Not Reportable Blast Cells Not Reportable WBC Morphology Comment See comments (NORM) Plt Morphology Comment Normal morphology (NORM) RBC Morph Comment See comments (NORM) Sodium 140 (135-145) meq/L Potassium 3.3 L (3.8-5.2) meq/L Chloride 108 (98-112) meq/L Carbon Dioxide 24 (23-33) meq/L Anion Gap 8 (5-20) BUN 6 L (7-22) mg/dL Creatinine 0.6 (0.50-1.20) mg/dL Estimated GFR > 60 (>60 ml/min/1.73m(2)) BUN/Creatinine Ratio 10.00 (6-20) Glucose 124 H (78-110) mg/dL Calculated Osmolality 288.0 (267-292) mOsm/kg Calcium 7.9 L (8.7-10.7) mg/dL Iron 12 L (37-170) UG/DL TIBC 325 (265-497) ug/dL % Saturation 3.7 L (14-50) % Vitamin B12 438 (239-931) pg/mL Vitamin D 25-Hydroxy 26.8 L (30-100) NG/ML Serum Folate > 20.0 H (2.76-20.0) NG/ML Objective : Exam - General General Appearance: No Acute Distress - Head Head Exam: Normal Inspection, Atraumatic - Eye Eye Exam: Normal Appearance - ENT ENT Exam: Normal Exam - Neck Neck Exam: Normal Inspection - Respiratory Respiratory Exam: Clear to Auscultation - Bilaterally - Cardiovascular Cardiovascular Exam: RRR - GI/Abdominal GI/Abdominal Exam: Normal Bowel Sounds, Non Tender, Non Distended, Soft - Rectal Rectal Exam: Deferred - External Exam: Deferred - Extremities Extremities Exam: Normal Inspection - Back Back Exam: Normal Inspection - Neurological Neurological Exam: Alert, Oriented x 3, CN II-XII Intact, Moves All Extremities Equally - Psychiatric Psychiatric Exam: Normal Affect Assessment and Plan - Patient Problems (1) Neutropenic fever Current Visit: Yes Status: Acute Comment: Her white count improved. I Think we'll start cutting back on her fluid. If the blood culture remain negative may be will DC the vancomycin. Repeat her white count tomorrow. I will try to speak with Dr. delarosa today. (2) Hypertension Current Visit: Yes Status: Acute Comment: Same medications Qualifiers: Hypertension type: essential hypertension Qualified Description: Essential hypertension Qualifier Code(s): (I10) Essential (primary) hypertension (3) Hypokalemia Current Visit: Yes Status: Acute Comment: Potassium is low will continue potassium replacement Photo / Body Diagrams - Uploaded Photos Uploaded Photos:
[2016-11-11] MEDS: POTASSIUM CHLORIDE 20 MEQ TAB PO SCH (20:56)
[2016-11-12 00:55] VITALS: RESP 20
[2016-11-12 06:59] LABS: HEMATOCRIT 24.6 % (37.0-47.0); MEAN CORPUSCULAR HEMOGLOBIN 25.7 PG (27-31); MEAN CORPUSCULAR HGB CONC 32.5 g/dL (33-37); MEAN CORPUSCULAR VOLUME 79.1 FL (81-99); MEAN PLATELET VOLUME 9.3 FL (7.4-12.2); RED BLOOD COUNT 3.11 10^6/uL (4.20-5.40)
[2016-11-12] MEDS: Cefepime Inj 2 GM in Sodium Chloride 0.9% 100 ML IV SCH (07:25)
[2016-11-12 07:27] LABS: PLATELET MORPHOLOGY COMMENT NORMAL MORPHOLOGY (NORM); WBC MORPHOLOGY COMMENT SEE COMMENTS (NORM)
[2016-11-12 07:28] LABS: RBC MORPHOLOGY COMMENT SEE COMMENTS (NORM)
[2016-11-12 07:32] LABS: NEUTROPHILS % (MANUAL) 64 % (50-80)
[2016-11-12 07:33] LABS: BAND NEUTROPHILS % 22 % (0-10); BASOPHILS % (MANUAL) 0 % (0-1); EOSINOPHILS % (MANUAL) 0 % (0-8); LYMPHOCYTES % (MANUAL) 7 % (10-50); MONOCYTES % (MANUAL) 7 % (0-12)
[2016-11-12 08:05] VITALS: TEMP 98.1
--- NOTE | 2016-11-12 08:16 | PDOC(PROG) ---
Date and Time of Service: 11/12/2016 8:16 AM Interval History: Subjective Feels better, not dizzy or lightheaded. No fever overnight. Objective : Data - Labs CBC and BMP: 11/12/16 06:00 11/11/16 04:08 Labs - Last 24 Hours: Laboratory Results 11/12/16 Range/Units 06:00 WBC 8.92 (4.8-10.8) 10^3/uL RBC 3.11 L (4.20-5.40) 10^6/uL Hgb 8.0 L (12.0-16.0) g/dL Hct 24.6 L (37.0-47.0) % MCV 79.1 L (81-99) FL MCH 25.7 L (27-31) PG MCHC 32.5 L (33-37) g/dL RDW Std Deviation 54.5 H (39-50) fL RDW Coeff of Liz 19.6 H (11.5-14.5) % Plt Count 189 (140-350) 10*3/uL MPV 9.3 (7.4-12.2) FL Neutrophils % (Manual) 64 (50-80) % Band Neutrophils % 22 H (0-10) % Lymphocytes % (Manual) 7 L (10-50) % Monocytes % (Manual) 7 (0-12) % Eosinophils % (Manual) 0 (0-8) % Basophils % (Manual) 0 (0-1) % Metamyelocytes % Not Reportable Myelocytes % Not Reportable Promyelocytes % Not Reportable Blast Cells Not Reportable WBC Morphology Comment See comments (NORM) Plt Morphology Comment Normal morphology (NORM) RBC Morph Comment See comments (NORM) Objective : Exam - General General Appearance: No Acute Distress, Cooperative - Head Head Exam: Normal Inspection, Normocephalic - Eye Eye Exam: Normal Appearance - ENT ENT Exam: Normal Exam - Neck Neck Exam: Normal Inspection - Respiratory Respiratory Exam: Clear to Auscultation - Bilaterally - Cardiovascular Cardiovascular Exam: RRR - GI/Abdominal GI/Abdominal Exam: Normal Bowel Sounds, Non Tender, Non Distended, Soft - Rectal Rectal Exam: Deferred - External Exam: Deferred - Extremities Extremities Exam: Normal Inspection - Back Back Exam: Normal Inspection - Neurological Neurological Exam: Alert, Oriented x 3, CN II-XII Intact, Moves All Extremities Equally - Psychiatric Psychiatric Exam: Normal Affect Assessment and Plan - Patient Problems (1) Neutropenic fever Current Visit: Yes Status: Acute Comment: This is resolved. 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 Part of it may be also due to dilution. She'll follow-up with oncology next Friday they can check the level and decide if she needs transfusion then. (2) Hypertension Current Visit: Yes Status: Acute Comment: Same medications Qualifiers: Hypertension type: essential hypertension Qualified Description: Essential hypertension Qualifier Code(s): (I10) Essential (primary) hypertension (3) Hypokalemia Current Visit: Yes Status: Acute Comment: Our analyzer is not working, samples were sent to [facility] I told her once we get the results and then will probably discharge her after that and we' ll see whether she needs oral replacement Photo / Body Diagrams - Uploaded Photos Uploaded Photos:
[2016-11-12] MEDS: DILTIAZEM 60 MG TABLET PO SCH (08:46)
[2016-11-12] MEDS: LOSARTAN/HYDROCHLOROTHIAZIDE 50 MG/12.5 MG TABLET PO SCH (08:47)
[2016-11-12] MEDS: ENOXAPARIN SODIUM 40 MG/0.4 ML SYRINGE SUBCUT SCH (08:47)
[2016-11-12] MEDS: ACYCLOVIR 400 MG TABLET PO SCH (08:47)
[2016-11-12] MEDS ORDERED: HEPARIN 500 UNIT/5 ML SYRINGE FOR CENTRAL LINE IVP ONE (08:54)
[2016-11-12] MEDS: POTASSIUM CHLORIDE 20 MEQ TAB PO SCH (09:00)
[2016-11-12] MEDS: VITAMIN B COMPLEX PO SCH (09:40)
[2016-11-12] MEDS: ECHINACEA PO SCH (09:41)
[2016-11-12] MEDS: LYSINE PO SCH (09:41)
[2016-11-12 11:30] LABS: BLOOD UREA NITROGEN 7 mg/dL (7-22)
[2016-11-12 11:31] LABS: BUN/CREATININE RATIO 11.66 (6-20); CALCIUM 8.6 mg/dL (8.7-10.7); EST GLOMERULAR FILTRATION > 60 (>60 ml/min/1.73m(2))
--- NOTE | 2016-11-12 12:09 | DCSUMMARY ---
Hospitalization Summary Admit Date: 11/09/16 Discharge Date: 11/12/16 Hospital Course: Discharge diagnoses 1. Febrile neutropenia 2. Stage NICOLAS endometrial cancer status post radical hysterectomy and getting chemotherapy 3. Hypertension 4. Status post lap banding 5. Left lower lobe 6 mm pulmonary nodule need follow-up as an outpatient 6. Anemia Hospital course This is a 56 years old female with medical history significant for history of stage NICOLAS endometrial cancer status post radical hysterectomy and on her third cycle of 6 chemotherapy, history of hypertension. She's been treated by Dr. lowry at the [facility]. She came into the hospital because she developed fever and chills. They called the resident it applications developer who recommended that she present to the emergency for evaluation. She was found to have an absolute neutrophil count of 0. She never had this before. She denied symptoms and she was admitted to the hospital by Dr. Victor for febrile neutropenia. Please see his note. She was started on cefepime and vancomycin. She was getting also Neupogen. I saw the patient later on during her hospital stay she was making improvement her white count was improving. We kept her in the hospital to make sure the fevers resolved and on the day of discharge the fever resolved for more than 24 hours the culture remained negative. So we thought that she could be discharged home. I spoke with Dr. Lowry and did let him know about the patient' s admission to the hospital. We discharge her on moxifloxacin, she had a low potassium so we prescribed some potassium also. She'll follow-up with her oncologist next week. Patient did have some anemia probably secondary to the chemotherapy but part of it may be secondary to the dilution from the fluid, she did not have symptoms so we did not give her LAD transfusion and I thought this can be checked again next week when she she follow-up with her oncologist and they can determine if she need transfusion then. Laboratory Results 11/09/16 11/09/16 11/10/16 Range/Units 19:59 20:17 05:09 WBC 1.78 L 1.56 L (4.8-10.8) 10^3/uL RBC 3.48 L 3.16 L (4.20-5.40) 10^6/uL Hgb 9.2 L 8.2 L (12.0-16.0) g/dL Hct 27.4 L 25.1 L (37.0-47.0) % MCV 78.7 L 79.4 L (81-99) FL MCH 26.4 L 25.9 L (27-31) PG MCHC 33.6 32.7 L (33-37) g/dL RDW Std Deviation 51.0 H 51.5 H (39-50) fL RDW Coeff of Liz 18.7 H 18.8 H (11.5-14.5) % Plt Count 258 248 (140-350) 10*3/uL MPV 9.0 9.4 (7.4-12.2) FL Immature Gran % (Auto) 0 0 (0-5) % Neut % (Auto) 0 L 9.5 L (50-80) % Lymph % (Auto) 55.1 H 41.7 (10-50) % [place] % (Auto) 39.9 H 44.9 H (5-15) % Eos % (Auto) 2.8 2.6 (0-8) % Baso % (Auto) 2.2 H 1.3 H (0-1) % Immature Gran # (Auto) 0 0 10*3/UL Neut # (Auto) 0 0.15 10*3/UL Lymph # (Auto) 0.98 0.65 10*3/uL [place] # (Auto) 0.71 0.70 (0.3-0.8) 10*3/UL Eos # (Auto) 0.05 0.04 10*3/UL Baso # (Auto) 0.04 0.02 10*3/UL Neutrophils % (Manual) (50-80) % Band Neutrophils % (0-10) % Lymphocytes % (Manual) (10-50) % Monocytes % (Manual) (0-12) % Eosinophils % (Manual) (0-8) % Basophils % (Manual) (0-1) % Metamyelocytes % % Myelocytes % % Promyelocytes % Blast Cells WBC Morphology Comment Normal morphology See comments (NORM) Plt Morphology Comment Normal morphology Normal morphology (NORM) RBC Morph Comment Normal morphology See comments (NORM) Sodium 138 140 (135-145) meq/L Potassium 3.1 L 3.6 L (3.8-5.2) meq/L Chloride 99 103 (98-112) meq/L Carbon Dioxide 25 27 (23-33) meq/L Anion Gap 14 10 (5-20) BUN 14 9 (7-22) mg/dL Creatinine 0.9 0.6 (0.50-1.20) mg/dL Estimated GFR > 60 > 60 (>60 ml/min/1.73m(2)) BUN/Creatinine Ratio 15.55 15.00 (6-20) Glucose 142 H 145 H (78-110) mg/dL Calculated Osmolality 288.0 291.0 (267-292) mOsm/kg Lactic Acid 1.2 1.6 (0.70-2.10) MMOL/L Calcium 8.6 L 8.4 L (8.7-10.7) mg/dL Magnesium 1.6 (1.6-2.4) mg/dL Iron 12 L (37-170) UG/DL TIBC 325 (265-497) ug/dL % Saturation 3.7 L (14-50) % Total Bilirubin 0.6 (0.3-1.2) mg/dL AST 25 (8-39) IU/L ALT 39 (9-52) IU/L Alkaline Phosphatase 65 (38-126) IU/L Total Protein 6.7 (6.1-8.0) g/dL Albumin 3.8 (3.5-4.8) g/dL Globulin 2.9 (2.50-4.10) g/dL Albumin/Globulin Ratio 1.30 (1.3-2.0) mg/g Vitamin B12 438 (239-931) pg/mL Vitamin D 25-Hydroxy 26.8 L (30-100) NG/ML Serum Folate > 20.0 H (2.76-20.0) NG/ML Ur Collection Type Clean catch urine Urine Color Yellow Urine Clarity Clear (CLEAR) Urine pH 7.0 (5.0-8.5) Ur Specific [place] 1.015 (1.005-1.030) Urine Protein 30 (NEG) mg/dl Urine Glucose (UA) 100 (NEG) mg/dL Urine Ketones Negative (NEG) Urine Occult Blood Negative (NEG) Urine Nitrate Negative (NEG) Urine Bilirubin Negative (NEG) Urine Urobilinogen 1.0 (0.2) EU/dL Ur Leukocyte Esterase Negative (NEG) Urine RBC 0-1 (NONE) /hpf Urine WBC 0-1 (NONE) Ur Squamous Epith Cells Moderate (NONE) Ur Renal Epithelial Cell None (NONE) Urine Crystals None Urine Bacteria Rare (NONE) Urine Casts None (NONE) Urine Mucus None (NONE) Urine Trichomonas None (NONE) Urine Yeast None (NONE) Ur Culture Indicated? Culture not set 11/11/16 11/12/16 Range/Units 04:08 06:00 WBC 6.64 8.92 (4.8-10.8) 10^3/uL RBC 3.07 L 3.11 L (4.20-5.40) 10^6/uL Hgb 7.9 L 8.0 L (12.0-16.0) g/dL Hct 24.4 L 24.6 L (37.0-47.0) % MCV 79.5 L 79.1 L (81-99) FL MCH 25.7 L 25.7 L (27-31) PG MCHC 32.4 L 32.5 L (33-37) g/dL RDW Std Deviation 52.6 H 54.5 H (39-50) fL RDW Coeff of Liz 18.9 H 19.6 H (11.5-14.5) % Plt Count 206 189 (140-350) 10*3/uL MPV 8.9 9.3 (7.4-12.2) FL Immature Gran % (Auto) (0-5) % Neut % (Auto) (50-80) % Lymph % (Auto) (10-50) % [place] % (Auto) (5-15) % Eos % (Auto) (0-8) % Baso % (Auto) (0-1) % Immature Gran # (Auto) 10*3/UL Neut # (Auto) 10*3/UL Lymph # (Auto) 10*3/uL [place] # (Auto) (0.3-0.8) 10*3/UL Eos # (Auto) 10*3/UL Baso # (Auto) 10*3/UL Neutrophils % (Manual) 16 L 64 (50-80) % Band Neutrophils % 46 H 22 H (0-10) % Lymphocytes % (Manual) 17 7 L (10-50) % Monocytes % (Manual) 9 7 (0-12) % Eosinophils % (Manual) 0 0 (0-8) % Basophils % (Manual) 0 0 (0-1) % Metamyelocytes % 11 Not Reportable % Myelocytes % 1 Not Reportable % Promyelocytes % Not Reportable Not Reportable Blast Cells Not Reportable Not Reportable WBC Morphology Comment See comments See comments (NORM) Plt Morphology Comment Normal morphology Normal morphology (NORM) RBC Morph Comment See comments See comments (NORM) Sodium 140 139 (135-145) meq/L Potassium 3.3 L 3.6 L (3.8-5.2) meq/L Chloride 108 107 (98-112) meq/L Carbon Dioxide 24 22 L (23-33) meq/L Anion Gap 8 13 (5-20) BUN 6 L 7 (7-22) mg/dL Creatinine 0.6 0.6 (0.50-1.20) mg/dL Estimated GFR > 60 > 60 (>60 ml/min/1.73m(2)) BUN/Creatinine Ratio 10.00 11.66 (6-20) Glucose 124 H 103 (78-110) mg/dL Calculated Osmolality 288.0 285.0 (267-292) mOsm/kg Lactic Acid (0.70-2.10) MMOL/L Calcium 7.9 L 8.6 L (8.7-10.7) mg/dL Magnesium (1.6-2.4) mg/dL Iron (37-170) UG/DL TIBC (265-497) ug/dL % Saturation (14-50) % Total Bilirubin (0.3-1.2) mg/dL AST (8-39) IU/L ALT (9-52) IU/L Alkaline Phosphatase (38-126) IU/L Total Protein (6.1-8.0) g/dL Albumin (3.5-4.8) g/dL Globulin (2.50-4.10) g/dL Albumin/Globulin Ratio (1.3-2.0) mg/g Vitamin B12 (239-931) pg/mL Vitamin D 25-Hydroxy (30-100) NG/ML Serum Folate (2.76-20.0) NG/ML Ur Collection Type Urine Color Urine Clarity (CLEAR) Urine pH (5.0-8.5) Ur Specific [place] (1.005-1.030) Urine Protein (NEG) mg/dl Urine Glucose (UA) (NEG) mg/dL Urine Ketones (NEG) Urine Occult Blood (NEG) Urine Nitrate (NEG) Urine Bilirubin (NEG) Urine Urobilinogen (0.2) EU/dL Ur Leukocyte Esterase (NEG) Urine RBC (NONE) /hpf Urine WBC (NONE) Ur Squamous Epith Cells (NONE) Ur Renal Epithelial Cell (NONE) Urine Crystals Urine Bacteria (NONE) Urine Casts (NONE) Urine Mucus (NONE) Urine Trichomonas (NONE) Urine Yeast (NONE) Ur Culture Indicated? Discharge instruction Diet regular Activity as started Medications Home Medications Medication Instructions Recorded Confirmed Type Acyclovir [Zovirax] 1 tab PO BID PRN tab 09/10/16 11/09/16 History Echinacea 1 cap PO DAILY cap 09/10/16 11/09/16 History Losartan/Hydrochlorothiazide 1 tab PO DAILY tab 09/10/16 11/09/16 History [Hyzaar 50-12.5 Tablet] Lysine 1 tab PO DAILY tab 09/10/16 11/09/16 History Vitamin B Complex 1 cap PO DAILY cap 09/10/16 11/09/16 History Diltiazem HCl [Cardizem] 120 mg PO BID tab 11/12/16 Rx Moxifloxacin HCl 400 mg PO DAILY #3 tablet 11/12/16 Rx Potassium Chloride [Klor-Con] 20 meq PO DAILY #3 tab 11/12/16 Rx Follow-up with her oncologist next week Condition at discharge was stable for discharge Exam - Vitals Vital Signs: Vital Signs Temperature 98.1 F Temperature Source Oral Pulse Rate [Pulse Oximeter] 78 Pulse Rate 96 Respiratory Rate 20 Blood Pressure [Right Arm] 129/78 Pulse Ox 95 Oxygen Delivery Method Room Air Height 5 ft 4 in Weight 207 lb 12.8 oz Patient Problems - Patient Problem List (1) Neutropenic fever Status: Acute (2) Hypertension Status: Acute Qualifiers: Hypertension type: essential hypertension Qualified Description: Essential hypertension Qualifier Code(s): (I10) Essential (primary) hypertension (3) Hypokalemia Status: Acute
--- NOTE | 2016-11-14 14:31 | DI ---
CLINICAL STATEMENT: Fever, endometrial cancer. TECHNIQUE: IV contrast administration of volume of iodine-based contrast medium (isovue 100ml). CTA chest to opa cify pulmonary arteries. MPR. Additional MIP images obtained. COMMENTS: Tubes/Lines: Left chest port, tip terminates in the mid SVC. Lungs: Lungs are without focal consolidation, pleural effusion or pneumothorax. Bibasilar atelectasis is noted. Left lower lobe 6mm pulmonary nodule (axial image # 75). Pulmonary emboli: No central pulmonary emboli. Distal segmental and sub segmental branches are limite d secondary to respiratory motion and incomplete opacification. Heart: No cardiomegaly or pericardial effusion. Vessels:Thoracic aorta and coronary arteries without gross abnormality. Mediastinum: No mediastinal adenopathy by size criteria. Abdomen: Gastric band in position, tubing/reservoir outside the field of view. Limited evaluation of the upper abdominal viscera without acute abnormality identified. Probable splenule. Sternum, ribs and thoracic spine: No acute osseous finding identified. IMPRESSION: 1. No focal consolidation, pleural effusion or pneumothorax. 2. No central pulmonary emboli, distal branches limited. 3. Left lower lobe 6mm pulmonary nodule. Imaging features nonspecific, differential includes inflamma tory or metastatic process. Given patient history of endometrial cancer, recommend correlation with previous imaging and if not available short interval followup CT (3 months) to evaluate for stability .
--- NOTE | 2016-11-14 14:33 | DI ---
RADIOGRAPHS, PA/LAT CHEST. CLINICAL STATEMENT: Fever, on chemo. COMPARISON:09/11/2016 TECHNIQUE: PA and Lateral radiographs were obtained of the chest. COMMENTS: Left sided chest port noted, tip in the mid SVC. No focal airspace opacity, pleural effusion or pneumothorax. Normal heart size. Multilevel thoracic degenerative changes. IMPRESSION: No acute cardiopulmonary disease.
== END 2016-11-12 13:09 | disposition home or self-care (01) | DRG 810 ==
LOC: ER 19:27 → MED/SURG 21:43
PROVIDERS: ADMIT Family Medicine; ATTEND Family Medicine
DX: D70.8 Other neutropenia (principal); C54.1 Malignant neoplasm of endometrium; I10 Essential (primary) hypertension; R91.1 Solitary pulmonary nodule; D64.9 Anemia, unspecified; E87.6 Hypokalemia
CPT/HCPCS: 36415; 71020; 71275; 80048; 80053; 81001; 81003; 82306; 82607; 82746; 83540; 83550; 83605; 83735; 85007; 85025; 87040; 87641; 94761; 99284; J0692; J1335; J1650; J3370; J3480; J7030; J7040; J7050; J7060

== ENCOUNTER 2016-11-24 13:16 | Emergency (ER) | payer BC ==
[2016-11-24 13:41] VITALS: RESP 22; TEMP 97.4
--- NOTE | 2016-11-24 14:01 | PDOC ---
Dyspnea HPI - General Chief Complaint: Respiratory Complaint Stated Complaint: Short of breath Date Seen by Provider: 11/24/16 Time Seen by Provider: 13:30 Source: POSITIVE: Patient, Spouse Exam Limitations: POSITIVE: No limitations Treatment Prior to Arrival: REPORTS: None Nurse's Notes Reviewed & Considered: Yes - History of Present Illness Initial Comments: Patient presents since the emergency department today with dyspnea on exertion. This started when she got up from her chair outside today. Patient denied associated anxiety. She denies associated chest pain. She denies fever. Patient has a history of endometrial cancer. Is on chemotherapy. Her last dose of chemotherapy was 6 days ago. She did receive Neulasta injection after chemotherapy. Patient did have about 1 week ago and episode of fever along with low white blood cell count and anemia. This did require hospitalization. Patient today denies any fever. She denies any chills. She denies cough. She denies new swelling of her legs. She does have some tingling in her feet which has been present since starting the chemotherapy and progressively worsened. She denies any michael pain in her legs or arms. Patient denies nausea, vomiting , diarrhea, constipation. She denies dysuria, hematuria, urgency, nor frequency today. - Patient Home Medications Home Medications: Home Medications Acyclovir [Zovirax] 1 tab PO BID PRN tab 09/10/16 Echinacea 1 cap PO DAILY cap 09/10/16 Losartan/Hydrochlorothiazide [Hyzaar 50-12.5 Tablet] 1 tab PO DAILY tab Lysine 1 tab PO DAILY tab 09/10/16 Vitamin B Complex 1 cap PO DAILY cap 09/10/16 Diltiazem HCl [Cardizem] 120 mg PO BID tab 11/12/16 Potassium Chloride [Klor-Con] 20 meq PO DAILY #3 tab 11/12/16 - Patient Allergies Allergies/Adverse Reactions: Allergies Allergy/AdvReac Type Severity Reaction Status Date / Time No Known Drug Allergies Allergy NOT Verified 11/24/16 13:27 APPLICABLE Past Medical History - heen HEENT History: Denies History Cardiovascular History: Hypertension Additional Cardiovasular History: MURMUR Respiratory History: Denies History Gastrointestinal History: Other (please comment) Additional Gastrointestinal History: HX OF LAP BAND Genitourinary History: Denies History Endocrine History: Denies History Musculoskeletal History: Denies History Prosthesis or Implant: No Neurological History: Motion Sickness Blood Disorders: Denies History Psychiatric History: Denies History History of Sexually Transmitted Diseases: No Female Reproductive History: Hysterectomy Cancer History: Other (please comment) Cancer Treatment / Date(s) of Treatment: EXTENSIVE SX. HYST, LYMPH NODE, CHEMO In Past Year Been Physically Harmed or Verbally Threatened: No History of MDRO: No History of Other Communicable Diseases: No Tobacco Use: Never Smoker Alcohol Use: Rarely Substance Use Type: None Previous Surgical History: Yes Type / Date of Surgery: RADICAL HYST/ BILAT OOPHORECTOMY/ LAP BAND/ D&C/ LYMPH NODE DISSECTION Anesthesia Reactions: No Malignant Hyperthermia: No Significant Family History: No pertinent family hx Dyspnea Progress - Results Reviewed by me Xrays/CTs/US Reviewed by me: Yes Radiology Findings: No PE, NO acute infiltrate, no PTX. No acute findings Lab Results Reviewed: Yes (hypokalemia, elevated ddimer. NML trop. Anemia improved from last visit. ) Lab Results:: Laboratory Results 11/24/16 11/24/16 11/24/16 Range/Units 14:18 14:19 14:20 WBC 3.97 L (4.8-10.8) 10^3/uL RBC 3.89 L (4.20-5.40) 10^6/uL Hgb 10.5 L (12.0-16.0) g/dL Hct 31.3 L (37.0-47.0) % MCV 80.5 L (81-99) FL MCH 27.0 (27-31) PG MCHC 33.5 (33-37) g/dL RDW Std Deviation 54.9 H (39-50) fL RDW Coeff of Liz 19.3 H (11.5-14.5) % Plt Count 202 (140-350) 10*3/uL MPV 10.2 (7.4-12.2) FL Neutrophils % (Manual) 37 L (50-80) % Band Neutrophils % 2 (0-10) % Lymphocytes % (Manual) 49 (10-50) % Monocytes % (Manual) 11 (0-12) % Eosinophils % (Manual) 1 (0-8) % Basophils % (Manual) 0 (0-1) % Metamyelocytes % 0 % Myelocytes % Not Reportable Promyelocytes % Not Reportable Blast Cells Not Reportable WBC Morphology Comment Normal morphology (NORM) Plt Morphology Comment Normal morphology (NORM) RBC Morph Comment Normal morphology (NORM) D-Dimer 3.01 H (0.00-0.59) mg/L VBG pH (7.32-7.42) VBG pCO2 (45-55) mmHg VBG HCO3 (22-26) mmol/L VBG Base Excess (-2-2) MMOL/L Sodium 139 (135-145) meq/L Potassium 3.2 L (3.8-5.2) meq/L Chloride 99 (98-112) meq/L Carbon Dioxide 26 (23-33) meq/L Anion Gap 14 (5-20) BUN 34 H (7-22) mg/dL Creatinine 1.2 (0.50-1.20) mg/dL Estimated GFR 46 (>60 ml/min/1.73m(2)) BUN/Creatinine Ratio 28.33 H (6-20) Glucose 97 (78-110) mg/dL Calculated Osmolality 295.0 H (267-292) mOsm/kg Calcium 9.3 (8.7-10.7) mg/dL Troponin I < 0.012 (< 0.040) ng/mL 11/24/16 Range/Units 14:30 WBC (4.8-10.8) 10^3/uL RBC (4.20-5.40) 10^6/uL Hgb (12.0-16.0) g/dL Hct (37.0-47.0) % MCV (81-99) FL MCH (27-31) PG MCHC (33-37) g/dL RDW Std Deviation (39-50) fL RDW Coeff of Liz (11.5-14.5) % Plt Count (140-350) 10*3/uL MPV (7.4-12.2) FL Neutrophils % (Manual) (50-80) % Band Neutrophils % (0-10) % Lymphocytes % (Manual) (10-50) % Monocytes % (Manual) (0-12) % Eosinophils % (Manual) (0-8) % Basophils % (Manual) (0-1) % Metamyelocytes % % Myelocytes % Promyelocytes % Blast Cells WBC Morphology Comment (NORM) Plt Morphology Comment (NORM) RBC Morph Comment (NORM) D-Dimer (0.00-0.59) mg/L VBG pH 7.52 H (7.32-7.42) VBG pCO2 31 L (45-55) mmHg VBG HCO3 25 (22-26) mmol/L VBG Base Excess 2 (-2-2) MMOL/L Sodium (135-145) meq/L Potassium (3.8-5.2) meq/L Chloride (98-112) meq/L Carbon Dioxide (23-33) meq/L Anion Gap (5-20) BUN (7-22) mg/dL Creatinine (0.50-1.20) mg/dL Estimated GFR (>60 ml/min/1.73m(2)) BUN/Creatinine Ratio (6-20) Glucose (78-110) mg/dL Calculated Osmolality (267-292) mOsm/kg Calcium (8.7-10.7) mg/dL Troponin I (< 0.040) ng/mL EKG Interpreted/Reviewed By Me:: Yes - Patient's Progress Re-Examine Time: 17:26 Re-Examine Comment: Feeling well. Discussed all results. Relieved by results. plan for follow up with oncology in 2 weeks, but will follow up by phone this week. Instructed to return to ED sooner for any worsening of condition. MDM / ED Course: Patient presented to the emergency department with complaints of dyspnea. She has normal oxygen saturations on room air. The patient has a history of endometrial cancer and is on chemotherapy. She has had 4 total rounds of chemotherapy the last being 6 days ago. Patient did get Neulasta shot the day after chemotherapy. One possible side effect of the Neulasta shot is dyspnea. The patient denies any fevers today and is not febrile here in the emergency department. She has not had fevers during the week. The last round of chemotherapy the patient was found to be anemic and required hospitalization. She was also found to have a profoundly low white blood cell count. I did compare today's results to her recent hospitalization. Patient's anemia has improved and almost resolved. Patient's white blood cell count today is in normal range. Chest x-ray today by my interpretation shows no acute infiltrate , no pneumothorax, no effusions, no acute cardiothoracic disease process. EKG was performed today by my interpretation shows a sinus rhythm at 79 bpm. Nonspecific T-wave inversion and flattening. No ST changes. No signs of acute ischemia. Labs today did show a mild hypokalemia and the patient's potassium was replaced orally. She tolerated this well. It also showed an elevated d- dimer. Due to the patient's dyspnea and elevated d-dimer recommended CTA of the chest be performed to evaluate for pulmonary embolism. This was performed. CTA per the radiologist shows no pulmonary embolism no infiltrates nor effusions. I discussed all these results with the patient and her who accompanied her today. She felt relieved to find out her results today. I feel she can safely be discharged home at this time. Her dyspnea today and may be a side effect of her chemotherapy and Neulasta. I did provide the patient with return precautions which include worsening dyspnea, chest pain, confusion or any further concerns. Patient and expressed understanding of all results and need for follow-up. I did encourage follow-up with oncology as scheduled and by phone later this week. Patient was subsequently discharged home with her in stable and improved condition. Patient Care Time - Estimated PCT Patient Care Time (In Minutes): 35 Vital Signs - Recent Vital Signs Vital Signs: Vital Signs (Last 8 hours) Temp Pulse Resp BP Pulse Ox 11/24/16 13:30 97.4 F 90 22 130/69 100 - VS Reviewed Vital Signs Reviewed: Yes Discharge Clinical Impression: Dyspnea, Hypokalemia with normal pH, Dehydration Discharge Disposition: Discharged to Home Condition: Good Print Language: BENINESE Additional Instructions: Return to the emergency department for any worsening shortness of breath, fever , chest pain, or any other concern. Follow-up with your oncologist as scheduled. Please contact their office via phone this week to discuss your emergency department visit.
[2016-11-24] MEDS ORDERED: NORMAL SALINE 10 ML SYRINGE FLUSH IVP PRN (14:17)
--- NOTE | 2016-11-24 14:22 | EKG ---
[address] [address] Measurements Intervals [place] Rate: 79 P: 144 MN: 141 QRS: 144 QRSD: 100 T: -61 QT: 390 QTc: 425 Interpretive Statements SINUS RHYTHM POSSIBLE LEFT ATRIAL ENLARGEMENT LOW VOLTAGE No previous ECG available for comparison Electronically Signed On 11-24-16 16:53:44 MDT by Zana Lau [email or web address]
[2016-11-24 14:45] LABS: HEMATOCRIT 31.3 % (37.0-47.0); HEMOGLOBIN 10.5 g/dL (12.0-16.0); MEAN CORPUSCULAR HGB CONC 33.5 g/dL (33-37); MEAN CORPUSCULAR VOLUME 80.5 FL (81-99); RED BLOOD COUNT 3.89 10^6/uL (4.20-5.40)
[2016-11-24 14:46] LABS: MEAN PLATELET VOLUME 10.2 FL (7.4-12.2); PLATELET MORPHOLOGY COMMENT NORMAL MORPHOLOGY (NORM); RBC MORPHOLOGY COMMENT NORMAL MORPHOLOGY (NORM); WBC MORPHOLOGY COMMENT NORMAL MORPHOLOGY (NORM)
[2016-11-24 14:55] LABS: BUN/CREATININE RATIO 28.33 (6-20); CALCIUM 9.3 mg/dL (8.7-10.7)
[2016-11-24 15:07] LABS: BAND NEUTROPHILS % 2 % (0-10); BASOPHILS % (MANUAL) 0 % (0-1); EOSINOPHILS % (MANUAL) 1 % (0-8); LYMPHOCYTES % (MANUAL) 49 % (10-50); METAMYELOCYTES % 0 %; MONOCYTES % (MANUAL) 11 % (0-12); NEUTROPHILS % (MANUAL) 37 % (50-80)
[2016-11-24 15:21] LABS: VENOUS PH 7.52 (7.32-7.42)
[2016-11-24] MEDS ORDERED: POTASSIUM CHLORIDE 20 MEQ TAB PO ONE (15:25)
--- NOTE | 2016-11-24 15:28 | DI ---
HISTORY: Dyspnea. On chemo for endometrial cancer. COMPARISON: Report dated 11/10/2016. TECHNIQUE: PA and lateral radiographs were obtained of the chest. FINDINGS: Left chest port in position. No focal airspace opacity, pleural effusion or pneumothorax. Nodule identified on the prior chest CT is not evident on the radiograph. Normal heart size. Mult ilevel thoracic degenerative changes. IMPRESSION: 1. No acute cardiopulmonary disease.
[2016-11-24] MEDS ORDERED: LACTATED RINGERS 1000 ML PRIMARY IV SCH (15:45)
--- NOTE | 2016-11-24 17:15 | DI ---
HISTORY: Dyspnea and elevated D-dimer. Concern for PE. COMPARISON: 11/10/2016. TECHNIQUE: CTA images were obtained through the chest and submitted for interpretation. FINDINGS: Examination demonstrates normal pulmonary arteries without filling defect. There is no in filtrate nor effusion. The upper abdomen demonstrates a gastric band. There is a left anterior chest port noted. IMPRESSION: 1. No pulmonary embolism. 2. No infiltrates nor effusion. NOTIFICATION: The above report was sent to Andreea Reid in the ER Department on 11/24/2016 at 07:19 PM EST.
== END 2016-11-24 17:47 | disposition home or self-care (01) ==
LOC: ER 13:16
DX: R06.00 Dyspnea, unspecified (principal); R79.1 Abnormal coagulation profile; E87.6 Hypokalemia; E86.0 Dehydration; R20.2 Paresthesia of skin
CPT/HCPCS: 36415; 71020; 71275; 80048; 82803; 84484; 85007; 85379; 93005; 93010; 99284; J7120